=== PATIENT | female | born 1985 | race African-American/Black ===

== ENCOUNTER → 2017-07-11 | Outpatient (CLI) | payer OTHER ==
[~2017-07-11] MED LIST: ADDERALL 30 MG30 MG PO; DEPO-PROVER150 MG/M1 IM; IBUPROFEN 600600 M1 PO; NORCO 5-325 TA1 EACH PO; VALIUM5 MG PO
== END ==
LOC: ULTRA 05:51
DX: R10.84 Generalized abdominal pain (principal); R14.0 Abdominal distension (gaseous)

== ENCOUNTER 2018-08-04 18:30 | Emergency (ER) | payer OTHER ==
[~2018-08-04] VITALS: Ht 170.2 cm; Wt 95.3 kg
[2018-08-04] MEDS ORDERED: LAMICTAL200 MG PO (18:34)
[2018-08-04] MEDS ORDERED: XYZAL5 MG PO (18:55)
[2018-08-04 19:28] VITALS: BP 124/91
[2018-08-04] MEDS ORDERED: FLONASE 0.05%50 MCG NASAL (19:35)
[2018-08-04] MEDS ORDERED: SUDOGEST30 MG PO (19:35)
[2018-08-04] MEDS ORDERED: TESSALON PERLE100 MG PO (19:36)
== END 2018-08-04 19:48 | disposition home or self-care (01) ==
LOC: ER 18:30
DX: J06.9 Acute upper respiratory infection, unspecified (principal); F90.9 Attention-deficit hyperactivity disorder, unspecified type